=== PATIENT | female | born 1935 | race Caucasian/White ===

== ENCOUNTER → 2017-05-04 | Day surgery (SDC) | payer MEDICARE, BC ==
[~2017-05-04] MED LIST: CERTAGEN PO; COLESTID PO; HCTZ PO; HYDRALAZINE HCL25 MG PO; LEXAPRO PO; LIQUID B-11000 MCG/1 PO; LOMOTIL 2.5-0.1 EACH PO; LOPRESSOR PO; LOSARTAN-HCTZ1 EACH PO; LOTREL 2.5/10 M1 CAP PO; LOTREL 5/20 MG1 CAP PO; LOTREL PO; SERTRALINE HCL50 MG PO; TOPROL XL PO
--- NOTE | ~2017-05-04 | OR ---
Unit #: [id number] #: [id number] Patient: NICOLE MACKAY [id number] [address] [place], [place] [address] [id number] MR#: [id number] NAME: NICOLE MACKAY ROOM: Date of Procedure: 05/04/2017 Admission Date: 05/04/2017 Surgeon: Servando Rodríguez M.D. : 1935 Attending Physician: Servando Rodríguez M.D. Primary Care Physician: Stuart Berrios M.D. OPERATIVE REPORT PREOPERATIVE DIAGNOSIS The patient has presented with history of watery nonbloody diarrhea, which is intermittent and also nocturnal. PROCEDURE PERFORMED Colonoscopy with biopsies. POSTOPERATIVE DIAGNOSES The patient had moderate pandiverticulosis, otherwise examination was normal up to cecum and terminal ileum. The quality of the prep was excellent. Multiple random colonic biopsies were obtained from throughout the colon to rule out microscopic or collagenous colitis. RECOMMENDATIONS The patient is being started on empiric Lomotil and Colestid, and will be followed up in the office in 3 months' time. SEDATION USED MAC. DESCRIPTION OF PROCEDURE Following detailed explanation of the potential risks and complications of a colonoscopy, namely perforation, bleeding, and complications related to sedation, the patient was brought to GI lab and laid in the left lateral decubitus position. A digital rectal examination was performed, which was normal. Lubricated tip of the Olympus video colonoscope was inserted through the anus and advanced under direct vision. The scope was advanced past rectosigmoid into descending colon. Multiple medium-sized diverticula were seen in this area. The scope tip was then navigated all the way up to cecum with visualization of the ileocecal valve and the appendiceal orifice. Preparation was excellent with good visualization and photodocumentation was obtained. Last several inches of the terminal ileum were also visualized after intubation of the ileocecal valve and appeared normal. Successive segments of the colonic mucosa were examined upon withdrawal and appeared unremarkable except for presence of moderate pandiverticulosis. No polyps or mucosal abnormalities were noted. Multiple random colonic biopsies were obtained from throughout the colon to rule out microscopic or collagenous colitis. The patient did not have any hemorrhoids at anal verge. The scope was then withdrawn and the patient returned to the recovery area. She tolerated the procedure without any postprocedure complications. Unit #: [id number] #: [id number] Patient: NICOLE MACKAY Dictated by... Savannah Urbina/brennon TD: 05/04/2017 15:52 JOB #: [id number] CC: Coy Velásquez M.D. OPERATIVE REPORT Page 1 of 1 X Servando Rodríguez MD PROCEDURE OPERATIVE NOTE
== END | disposition home or self-care (01) ==
LOC: COPS 07:41
DX: K52.831 Collagenous colitis (principal); K57.30 Diverticulosis of large intestine without perforation or abscess without bleeding; I10 Essential (primary) hypertension; Z79.899 Other long term (current) drug therapy; Z98.890 Other specified postprocedural states
CPT/HCPCS: 88305